=== PATIENT | male | born 1935 | race Caucasian/White ===

== ENCOUNTER 2019-04-27 09:57 | Emergency (ER) | payer MEDICARE, SELFPAY ==
[2019-04-27 09:58] VITALS: BP 120/57; PULSE 63; RESP 21; TEMP 36.7; O2SAT 93; BMI 28.7
--- NOTE | 2019-04-27 10:06 | RAD_ITS ---
STUDY: X-RAY - RIGHT KNEE REASON FOR EXAM: Male, 83 years old. FALL. SWOLLEN AND UNABLE TO BEND TECHNIQUE: 4 view(s) of the knee. COMPARISON: None. FINDINGS: Normal visualized distal femur. Normal visualized proximal tibia and fibula. Normal proximal tibiofibular articulation. There is mild osteophyte formation in the medial and lateral tibiofemoral compartment. There is mild medial joint space narrowing. Normal patellofemoral articulation. 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 There is a moderate suprapatellar effusion. There is no definitive evidence for acute displaced fracture. 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 RAD/Knee 4 or More Views IMPRESSION: Degenerative changes. Joint effusion. Electronically Signed: Castro Simon, at 10:34 EDT Tel , Service support ,
--- NOTE | 2019-04-27 10:18 | ED.DCSUM_ITS ---
History of Present Illness Chief Complaint: Lower Extremity Injury Informant: Patient, [employer] Super[employer] Onset: Yesterday Mechanism/Context: Fall Quality of Pain: Dull, Aching Location: Right knee and distal right thigh Current Severity: Mild Maximum Severity: Moderate Worsened by: Movement and weightbearing Relieved by: Rest Associated Symptoms: - - Syncopal episode. Negative for: Parasthesias, Weakness, Loss of function, Inability to ambulate, Loss of consciousness, Amnesia Narrative: Patient is an elderly male with COPD and oxygen dependent. He was cooking last evening. He removed his oxygen because he was cooking. He was without oxygen for 30 minutes. He apparently had a near syncopal/syncopal episode. This occurred the week prior when he removed his oxygen for prolonged period time. Patient states he fell and landed directly on his right knee. There is no history of head trauma. He denies neck pain. Denies paresthesia, anesthesia medics. He is on Eliquis. He denied cardiac respiratory symptoms prior to his fall. He does have a history of end-stage renal disease. 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 (4) Hypertension Status: Chronic (5) History of atrial fibrillation Status: Suspected (6) History of coronary artery disease Status: Chronic Past Medical History - Allergies and Home Meds Allergies/Adverse Reactions: Allergies NSAIDS (Non-Steroidal Anti-Inflamma Adverse Reaction (Verified 04/27/19 09:59) PT UNSURE OF REACTION Primary Care Physician: Xavier Costa MD [Primary Care Provider] - Surgical History: coronary bypass surgery Lives: Spouse/ Significant Other Smoking Status: Never smoker Alcohol: None Drugs: None Review of Systems General: Denies: Chills, Fever, Sweats Eyes: Denies: Visual changes - bilaterally, Blurred Vision - bilaterally ENT: Denies: Bilateral ear pain, Rhinorrhea Cardiovascular: Denies: Chest pain, Palpitations Respiratory: Reports: Dyspnea on exertion - Chronic. Denies: Dyspnea, Cough Gastrointestinal: Denies: Abdominal pain, Nausea, Vomiting, Diarrhea, Melena, Hematochezia Musculoskeletal: Reports: Swelling, Extremity Pain. Denies: Myalgias, Arthralgias, Neck pain, Back pain Skin: Denies: Rash, Wounds Neurological: Denies: Headache, Parasthesia Hematologic: Reports: Easy bruising. Denies: Easy bleeding Physical Exam Vital Signs/Narrative: Vital Signs Temp Pulse Resp BP Pulse Ox 04/27/19 09:58 98.0 F 63 21 H 120/57 L 93 Inital Vital Signs reviewed: Yes General: Well nourished, Well developed Head: Normocephalic, Atraumatic. Negative for: Trauma, Tenderness Eyes: Perrl, EOMI. Negative for: Pale conjunctiva, Scleral icterus ENT: TM's clear, No hemotympanum or drainage, No trauma. Negative for: Hemotympanum, Nasal trauma, Nasal septal hematoma Neck: Nontender, Full ROM. Negative for: Spinal Tenderness, Paraspinal Tenderness Cardiovascular: Regular rate, Regular rhythm, No murmurs Respiratory: No distress, CTA bilaterally, Chest nontender Extremeties: The right knee is markedly swollen compared to the left. There is tenderness over the infrapatellar region. There is joint line tenderness as well. The patella is not ballotable. There is an effusion. He complains of pain with varus and valgus stress testing without laxity. He is able to extend 280 degrees and flex only 200 degrees. Gabriela's test was negative. Modified Marixa's test was not performed because he had pain with palpation over the joint line. There was no pain the patient over the greater trochanteric region. Logrolling of the right lower extremity causes no pain. Flexion to 60 degrees at the hip causes no pain. There is no pain the patient with the pubic symphysis, ischio tuberosity or iliac wing either side. DP and PT pulse are palpable. There is no evidence of trauma to the toes, foot or ankle. Skin: Normal color, No rash, Trauma. Negative for: Cyanosis, Diaphoresis, Jaundice, No Trauma Neurological: Alert, Oriented x3, Cranial nerves II-XII grossly intact, Normal Strength, Normal Sensation Psychological: Normal affect, Normal Mood - Glascow Coma Scale Eye Opening: Spontaneous Motor: Obeys Commands Verbal: Oriented Coma Scale Total: 15 Diagnostic/Tx/Re-eval Chest X-Ray - ED: Read by ED Physician, - - 4 view x-ray of the right knee was obtained. Surgical clips noted for vein harvesting. There is significant degenerative arthritic changes noted. There is a small effusion noted. There is asymmetry of the joint line. There is no evidence of fracture or subluxation. - Medical Decision Making X-ray was obtained to evaluate for fracture versus soft tissue injury. Cannot rule out meniscal injury based on exam. Patient in all likelihood has traumatic bursitis based on area of swelling and tenderness. NSAIDs are contraindicated. Patient was treated with prednisone for this reason. He also was treated with opiate analgesia. ED Disposition - Plan for ED Patient: Disposition: Home or Assisted Living Diagnosis: Bursitis, prepatellar, right, Traumatic joint effusion Instructions: Bursitis, Knee Effusion Prescriptions: Prednisone [Deltasone] 40 mg PO DAILY #10 tab Prescription Printed Hydrocodone Bitart/Apap 5-325 [[place] 5MG-325MG] 1 tab PO Q6H PRN PRN 3 Days #10 tab PRN Reason: Pain Prescription Printed Referrals: Xavier Costa MD [Primary Care Provider] - 5-7 Days
[2019-04-27] MEDS: HYDROcodone Bitartrate/Apap 5/325 Tablet PO (10:28)
[2019-04-27 10:40] VITALS: BP 121/59; PULSE 65; RESP 22
== END 2019-04-27 11:05 | disposition home or self-care (01) ==
PROVIDERS: Emergency Provider Emergency Medicine; PCP Family Medicine
DX: M70.41 Prepatellar bursitis, right knee (principal); Y93.9 Activity, unspecified; I12.0 Hypertensive chronic kidney disease with stage 5 chronic kidney disease or end stage renal disease; N18.6 End stage renal disease; J44.9 Chronic obstructive pulmonary disease, unspecified; I25.10 Atherosclerotic heart disease of native coronary artery without angina pectoris; Z99.81 Dependence on supplemental oxygen; Z95.1 Presence of aortocoronary bypass graft; Z79.01 Long term (current) use of anticoagulants
CPT/HCPCS: 73564; 99284